=== PATIENT | male | born 1975 | race Caucasian/White ===

== ENCOUNTER 2016-10-31 11:31 | Emergency (ER) | payer OTHER ==
[~2016-10-31] VITALS: Ht 175.3 cm; Wt 154.1 kg
[~2016-10-31 11:31] MED LIST: MOTRIN50 MG PO; MOTRIN800 MG PO; QUETIAPINE FUMA50 MG PO; TRAZODONE HCL50 MG PO; TYLENOL REGULA325 MG PO
[2016-10-31] MEDS ORDERED: FLEXERIL10 MG PO (13:55)
[2016-10-31] MEDS ORDERED: LIDODERM 5% P1 PATCH TD (13:55)
[2016-10-31] MEDS ORDERED: MOTRIN800 MG PO (13:55)
[2016-10-31] MEDS ORDERED: PREDNISONE20 MG PO (13:55)
== END 2016-10-31 14:21 | disposition home or self-care (01) ==
LOC: EME 11:31
DX: M54.41 Lumbago with sciatica, right side (principal); F17.200 Nicotine dependence, unspecified, uncomplicated
CPT/HCPCS: 72100; 99281; 99283; J7512